=== PATIENT | male | born 2000 | race Two or more races ===

== ENCOUNTER 2023-07-28 11:21 | Emergency (ER) | payer SELFPAY ==
[~2023-07-28] VITALS: Ht 167.6 cm; Wt 90.9 kg
[2023-07-28] MEDS: SODIUM CHLORIDE 0.9% 1,000 ML IV ONE ×2 (11:45→12:47)
[2023-07-28] MEDS: THIAMINE 100mg/ml INJ (200mg/2ml VIAL) IV ONE (12:47)
[2023-07-28 14:03] LABS: Urine WBC None Seen /hpf (0 - 3)
[2023-07-28 14:12] LABS: Urine Bacteria NONE SEEN /hpf (None Seen); Urine Blood Negative /uL (Negative); Urine Clarity Clear (Clear); Urine Color Colorless (Yellow); Urine Protein, UAD Negative (Negative); Urine Specific Gravity 1.005 (1.001-1.035); Urine Urobilinogen Normal (Negative); Urine pH 6.5 (5.0-8.0)
[2023-07-28 14:30] VITALS: PULSE 60; RESP 20; O2SAT 96
[2023-07-28] MEDS: SODIUM CHLORIDE 0.9% 1,000 ML IVB ONE (16:37)
[2023-07-28 18:30] VITALS: BP 142/68; PULSE 88; RESP 20; TEMP 98.6; O2SAT 96
== END 2023-07-28 18:45 | disposition home or self-care (01) ==
LOC: EDBD 11:21 → ER 11:21
DX: F10.129 Alcohol abuse with intoxication, unspecified (principal); Y90.0 Blood alcohol level of less than 20 mg/100 ml
CPT/HCPCS: 36415; 80320; 81001; 96361; 96374; 99283; J3411; J7030